=== PATIENT | male | born 1990 | race Caucasian/White ===

== ENCOUNTER 2017-04-13 13:33 | Emergency (ER) | payer BC ==
[2017-04-13 13:47] VITALS: RESP 16; TEMP 97.7
--- NOTE | 2017-04-13 14:46 | EDPHY ---
H & P Time Seen by Provider: 04/13/17 14:32 HPI/ROS: CHIEF COMPLAINT: Facial lacerations, skied into [place]. HISTORY OF PRESENT ILLNESS: This patient is a healthy 26 y/o male presenting with multiple facial lacerations after skiing into [place] earlier today around 11:00am. He was skiing at [place] and hit a jump and flew into [place], striking his nose and face. He was not helmeted. He denies any loss of consciousness. He does have a headache which he rates about 8/10 in severity. MIld epistaxis. He has history of concussions in the past. He denies neck pain or any tooth malocclusion. He states he put his hands up to protect his face, but denies any other injuries. No dizziness, nausea, vomiting, vision changes, or other associated symptoms. REVIEW OF SYSTEMS: A 10 point review of systems was performed and is negative with the exception of the elements mentioned in the history of present illness. Past Medical/Surgical History: History of concussions Social History: Nonsmoker. Originally from [place]. Single. Smoking Status: Never smoked Physical Exam: General Appearance: Alert, pleasant Head: no scalp swelling of tenderness Eyes: No conjunctival erythema, PERRLA, EOMI ENT, Mouth: swelling and tenderness over the nasal bridge, 0.5cm laceration to right nasal ala that extends into the nose, no active bleeding, no septal hematoma. Ecchymosis to upper and lower lip. No hemotympanum, no oral trauma Neck: Non-tender, full range of motion without pain Respiratory: No chest wall tenderness, lungs clear bilaterally Cardiovascular: Regular rate and rhythm Abdomen: Abdomen is soft and non tender Back: No midline T/L/S tenderness Extremities: Pelvis is stable and nontender; no extremity tenderness or deformity, full range of motion without pain Neurological: A&Ox3, normal motor function, normal sensory exam, cranial nerves intact Psychiatric: Mood and affect normal Constitutional: Initial Vital Signs Temperature (C) 36.5 C 04/13/17 13:44 Heart Rate 90 04/13/17 13:44 Respiratory Rate 16 04/13/17 13:44 Blood Pressure 95/60 L 04/13/17 13:44 O2 Sat (%) 97 04/13/17 13:44 O2 Delivery Mode Room Air Allergies/Adverse Reactions: prochlorperazine [From Compazine] Allergy (Verified 04/13/17 13:43) Home Medications: Medication Instructions Recorded Concerta 04/13/17 Medical Decision Making - Diagnostics Imaging Results: Head CT 04/13/17 15:13 Impression: 1. Equivocal right supraorbital, right inferior frontal small brain contusion, without significant mass effect vs streak artifact from the supraorbital ridge. MRI would be confirmatory if clinically indicated. 2. Comminuted nasal fracture. Results discussed with Dr. Hopkins at 3:56 PM. General information for patients regarding this examination can be found at [email or web address]. If you have questions or comments about this report, please contact me at [phone](hospital) or [phone] (cell). Chest X-Ray 04/13/17 15:14 Impression: No acute posttraumatic abnormality identified. Brain MRI 04/13/17 15:57 Impression: Possible tiny amount of right subfrontal subarachnoid hemorrhage. There is no parenchymal hemorrhage or other posttraumatic extra nasal abnormality. Results called to Dr. Hopkins at 6:15 PM. Imaging: Discussed imaging studies w/ yardage caller Radiologist, I viewed and interpreted images myself Procedures: Procedure: Laceration repair. Verbal consent was obtained from the patient. The linear 0.5cm laceration on the right nasal ala was anesthetized using lidocaine. The wound was cleaned with standard ED protocol, draped and explored to its base with a gloved finger. The wound was repaired in single layer technique with 2 6-0 Ethilon sutures. The wound repair was simple. The procedure was performed by myself, Dr. Hopkins. ED Course/Re-evaluation: 26 yo male presents with facial trauma secondary to a ski accident. Exam reveals a 0.5cm laceration to the right nasal ala as well as swelling and abrasions to the nose and upper lip. Plan for laceration repair. Plan for CT head because of 8/10 FRY and mechanism of injury. While performing the laceration repair, the patient laid down complained of right anterior chest wall pain. This area was tender on exam. Plan for chest x- ray for further evaluation. 15:[address] Mott, radiologist. CT head shows evidence of possible tiny brain contusion (vs artifact) and comminuted nasal fracture. MRI brain ordered to ddx artifact vs hemorrhage Chest x-ray negative for fx/PTX. 18:[address] Villalba, radiologist. MRI brain equivocal for tiny subarachnoid hemorrhage. 18:[address] Monae, neurosurgeon. Dr. Monae reviewed the CT and MRI. He is comfortable with d/c home and outpatient followup for this patient. No indication for admission/observation. Reassessed patient. Discussed imaging results. Plan to d/c home in good condition. Follow up and return precautions discussed. Referrals given to ENT, neurosurgery, concussion specialist. Patient's uncle is a neurosurgeon and the patient is comfortable with outpatient f/u as well. Return precautions discussed. 19:21 Patient has a slight oozing of blood from the right nares. Administered Afrin, which alleviated the bleeding; d/w pt, will place Merocel if continues to bleed, no visible source of oozing blood. Observed pt, pt declined packing. Repeat exam on d/c unchanged; neuro intact, abd soft, NT. Safe/stable for d/c. Differential Diagnosis: includes though not limited to ICH, fracture, PTX, intraperitoneal hemorrhage - Data Points Medications Given: Discontinued Medications Morphine Sulfate (Morphine) 4 mg IVP EDNOW ONE Stop: 04/13/17 17:22 Last Admin: 04/13/17 17:33 Dose: 4 mg Ondansetron HCl (Zofran) 4 mg IVP EDNOW ONE Stop: 04/13/17 17:22 Last Admin: 04/13/17 17:33 Dose: 4 mg Departure - Departure Disposition: Home, Routine, Self-Care Clinical Impression: Subarachnoid hemorrhage Nasal fracture Qualifiers: Encounter type: initial encounter Fracture type: closed Qualified Code(s): S02.2XXA - Fracture of nasal bones, initial encounter for closed fracture Laceration of nose Qualifiers: Encounter type: initial encounter Qualified Code(s): S01.21XA - Laceration without foreign body of nose, initial encounter Concussion Qualifiers: Encounter type: initial encounter Loss of consciousness presence/duration: without LOC Qualified Code(s): S06.0X0A - Concussion without loss of consciousness, initial encounter Condition: Good Instructions: Care For Your Stitches (ED), Nasal Fracture (ED), Concussion (ED) , Facial Laceration (ED) Additional Instructions: 1. Return to the emergency department in 5 days for suture removal. Follow-up with your primary care doctor in 2-3 days. We have referred you to a concussion specialist, please follow up with her as well for continued management of your symptoms. 2. Follow up with neurosurgery for further evaluation of your minor head bleed as we discussed. 3. Follow up with an Ear, Nose, and Throat specialist next week for further evaluation of your nasal fracture. 4. Brain rest - try to avoid TV, video games, cell phones, or reading while symptoms persist. You may reintroduce activities as tolerated. 5. Physical rest - avoid activities that could result in further head injury or that require prolonged attention until your symptoms completely resolve. 6. You may take Tylenol or Ibuprofen as directed below as needed for pain. 7. Return to the Emergency Department for severe headache, vomiting, vision changes, confusion, fever or other concerns. Adult Pain & Fever Control: We recommend Acetaminophen (Tylenol) and Ibuprofen (Motrin,Advil) for pain and fever control. When fever is high or pain severe, both drugs can be used at the same time, but at different intervals. Please note the time differences. Your dose is: Acetaminophen 650mg every 4 to 6 hours Ibuprofen 600mg every 6-8 hours with food Note: do not take Acetaminophen with Hydrocodone (Vicodin, Lortab) or Oxycodone (Percocet). These medications also contain Acetaminophen. No more than 3000mg of Acetaminophen should be taken in 24 hours (for an adult). Referrals: BOAZ LINDER [Other] - As per Instructions Renate Oviedo MD [Medical Doctor] - As per Instructions Ismael Leigh MD [Medical Doctor] - As per Instructions Quinton Monae MD [Medical Doctor] - As per Instructions Report Scribed for: Ariana Hopkins Report Scribed by: Marcella Kaplan Date of Report: 04/13/17 Time of Report: 16:28 Physician Review and Approval Statement: 04/13/17 16:29 Portions of this note were transcribed by a medical recruiter. I personally performed a history, physical exam, medical decision making, and confirmed accuracy of information the transcribed note.
[2017-04-13] MEDS ORDERED: ONDANSETRON 4 MG/2 ML VIAL ONE (17:20)
[2017-04-13] MEDS ORDERED: ONDANSETRON 4 MG/2 ML VIAL IVP ONE (17:21)
[2017-04-13] MEDS ORDERED: OXYMETAZOLINE 30 ML NASAL SPRAY ONE (19:13)
[2017-04-13 20:06] VITALS: BP 132/83; PULSE 68; O2SAT 94
== END 2017-04-13 20:07 | disposition home or self-care (01) ==
PROC: 09QKXZZ Repair Nasal Mucosa and Soft Tissue, External Approach (ICD-10-PCS; principal; 2017-04-13)
DX: S02.2XXA Fracture of nasal bones, initial encounter for closed fracture (principal); S01.21XA Laceration without foreign body of nose, initial encounter; S06.0X0A Concussion without loss of consciousness, initial encounter; S06.6X0A Traumatic subarachnoid hemorrhage without loss of consciousness, initial encounter; V00.328A Other snow-ski accident, initial encounter; Y92.89 Other specified places as the place of occurrence of the external cause; Y93.23 Activity, snow (alpine) (downhill) skiing, snowboarding, sledding, tobogganing and snow tubing
CPT/HCPCS: 96374; J2270; J2405